=== PATIENT | male | born 1970 | race Caucasian/White ===

== ENCOUNTER 2023-05-17 20:50 | Emergency (ER) | payer OTHER, SELFPAY ==
[2023-05-17 20:53] VITALS: BP 190/124; BMI 42.1
[2023-05-17 21:14] VITALS: BP 178/134
[2023-05-17 21:36] LABS: % Basophils 0.5 % (0-2); % Eosinophils 0.8 % (0-6); % Immature Granulocytes 0.2 % (0-0.5); % Lymphocytes 56.5 % (20.5-51.1); % Monocytes 6.1 % (1.7-9.3); % Neutrophils 35.9 % (42.2-75.2); Absolute Basophils 0.1 10^3/uL (0-0.2); Absolute Eosinophils 0.1 10^3/uL (0-0.7); Absolute Lymphocytes 7.4 10^3/uL (1.2-3.4); Absolute Monocytes 0.8 10^3/uL (0.1-0.6); Absolute Neutrophils 4.7 10^3/uL (1.4-6.5); Hematocrit 46.3 % (39.0-52.0); Mean Corp Hgb Conc. 34.6 g/dL (33.0-37.0); Mean Corpuscular Hgb 30.2 pg (27.0-31.0); Mean Corpuscular Volume 87.4 fL (80.0-94.0); Mean Platelet Volume 10.6 fL (7.4-10.4); Nucleated Red Blood Cells % 0.2 % (-); Platelet Count 249 10^3/uL (130-400); Red Cell Dist. Width 13.2 % (11.5-14.5)
[2023-05-17] MEDS: TRANDATE 10 MG IV (21:48)
[2023-05-17 21:50] LABS: ALT (SGPT) 39 U/L (0-50); AST (SGOT) 42 U/L (17-59); Albumin 4.5 g/dl (3.5-5.0); Alkaline Phosphatase 97 U/L (38-126); Blood Urea Nitrogen 16 mg/dl (9-20); Calcium 9.7 mg/dl (8.4-10.2); Carbon Dioxide 21 mmol/L (22-30); Chloride 105 mmol/L (98-107); Estimated Creatinine Clearance 112 ml/min; Glucose 108 mg/dl (70-99); Potassium 3.9 mmol/L (3.5-5.1); Sodium 136 mmol/L (135-145); Total Bilirubin 0.6 mg/dl (0.2-1.3); Total Protein 7.2 g/dl (6.3-8.2); eGFR > 60.00
[2023-05-17 22:00] VITALS: BP 126/88
[2023-05-17 22:01] LABS: Troponin I < 0.012 ng/ml
[2023-05-17 22:39] VITALS: BP 141/83
[2023-05-17] MEDS: TRANDATE 100 MG PO (23:06)
[2023-05-17 23:08] VITALS: BP 154/100
[2023-05-18] VITALS: BP 146/96
--- NOTE | 2023-05-18 00:51 | ED.GENMED ---
History of Present Illness
General
Chief Complaint: Blood Pressure Problem
Source: patient
Exam Limitations: none
Time Seen by Provider: 05/17/23 21:20
Travel History
Have you had any contact with someone who has COVID-19?: No
Do you have any symptoms of coronavirus? Fever > 100 degrees, chills, cough, shortness of breath, sore throat, loss of taste or smell, muscle aches, or headache?: No
History of Present Illness
History of Present Illness:
52-year-old male who presents for evaluation of his blood pressure. Patient reports that he just did not feel well since about Thursday. He took his blood pressure at home and was noted to be high on Thursday. He thought maybe he did it wrong. He
states today he again did not feel quite right check his pressure. On Thursday he had a little bit of twinge of chest pain on his left chest. Since then he has not really had much pain. He had little bit discomfort in his back. No shortness of
breath. No motor weakness. No true headache. No vision changes. The patient admits he has not had his blood pressure checked in several years. He does not have a primary care doctor. He also admits he has gained some weight over the last few
years
Past History
Past History
ED Past Medical History: None
ED Past Surgical History: None
Social History
Tobacco: Non-smoker
Personal:
Living: with family
Phy Exam
Physical Exam
Physical Exam:
CONSTITUTIONAL Patient alert and oriented to person, place and time. Well-appearing. Vital signs reviewed. Obese
HEAD atraumatic, normocephalic.
EYES eyelids normal to inspection, Pupils equally round and reactive to light, Extraocular muscles intact, Conjunctiva normal, Sclera normal.
NECK normal range of motion, Trachea midline, no jugular venous distention.
RESPIRATORY CHEST No respiratory distress noted, Chest expansion equal, Bilateral breath sounds clear.
CARDIOVASCULAR regular rate and rhythm, Heart sounds normal.
ABDOMEN abdomen nontender, Bowel sounds normal. No distention.
BACK normal inspection, no obvious deformities
UPPER EXTREMITY range of motion normal, Motor strength normal, no cyanosis, no edema.
LOWER EXTREMITY range of motion normal, Motor strength normal, no cyanosis, no edema.
NEURO Speech normal, No focal motor deficits, [place] coma scale 15, Memory normal, Cranial Nerves intact to screening exam.
SKIN skin warm, dry, and normal in color.
PSYCHIATRIC patient oriented to person place and time, Normal affect.
Course
Orders/Labs/Results
Orders:
Orders
05/17/23 21:18
EKG [Electrocardiogram (*1)] Urgent
Reason for Study: Other
Other Reason for Exam: elevated blood pressure
05/17/23 21:19
EKG- Treatment ONCE
05/17/23 21:26
Complete Blood Count/With Diff Urgent
Comprehensive Metabolic Panel Urgent
Troponin I Urgent
05/17/23 21:42
Labetalol HCl [Trandate] 10 mg IV NOW STA
05/17/23 22:33
Vital Signs- Treatment ONCE
Frequency: Once
05/17/23 22:47
CR Chest - 2 Views Urgent
Comment:
Reason For Exam: HTN, cp
05/17/23 22:51
Labetalol [Trandate] 100 mg PO NOW STA
05/18/23 00:10
Ct Chest/Abd/Pel Angio W/Wo Iv Urgent
Reason For Exam: cp. HTN, r/o dissection
Abnormal Lab Results
05/17/23
21:26
WBC 13.0 H 10^3/uL
(4.8-10.8)
MPV 10.6 H fL
(7.4-10.4)
Absolute Lymphs (auto) 7.4 H 10^3/uL
(1.2-3.4)
Absolute Monos (auto) 0.8 H 10^3/uL
(0.1-0.6)
Neutrophils % 35.9 L %
(42.2-75.2)
Lymphocytes % 56.5 H %
(20.5-51.1)
Carbon Dioxide 21 L mmol/L
(22-30)
Glucose 108 H mg/dl
(70-99)
05/17/23 21:26
05/17/23 21:26
Vital Signs
Initial and Last Documented VS:
Initial Vital Signs
Temp Pulse Resp BP Pulse Ox
98 F 90 16 190/124 96
05/17/23 20:53 05/17/23 20:53 05/17/23 20:53 05/17/23 20:53 05/17/23 20:53
Last Documented Vital Signs
Temp Pulse Resp BP Pulse Ox
98 F 83 24 153/96 93
05/17/23 20:53 05/18/23 01:15 05/18/23 01:15 05/18/23 01:14 05/18/23 00:54
MDM/Problems Addressed
MDM/Problems Addressed:
Uncontrolled hypertension, obesity
*Radiology
Radiology exam reviewed: preliminary read by ED provider (No obvious dissection) and radiology read reviewed (No dissection)
*Pulse Oximetry
Patient hypoxic: no
*EKG
Interpreted by ED Provider?: Yes
Interpretation: abnormal
Rate: normal
Rhythm: PAC's
[place]: normal axis
Ischemia: no ischemia
*Child Custody Evaluator Interpretation
Rate: normal
Interpretation: normal
Rhythm: sinus and PAC's
*Critical Care Note
Total Time (30-74mins, 75-104mins- exclusive of procedures): 40-minute
Data Reviewed
Source: patient
Prescriptions/Medications Considered But Not Given:
Considered hydralazine but labetalol worked well
Patient Management
Escalation/DeEscalation of care consider admission/obs:
Patient appears well. Blood pressure uncontrolled. Check CTA to rule out aortic pathology
Update Note
Update Note:
Blood pressure much better controlled. In light of CT, blood pressure, like chest pain will refer to outpatient cardiology follow-up. Patient will need further cardiac workup. Counseled importance of weight loss. Counseled importance of diet and
exercise
ED Attending Note
-
Portions of this chart may have been created with voice recognition software.� Occasional wrong word or��sound alike� substitutions may have occurred due to the inherent limitations of voice recognition software.
Discharge Plan
Departure
Patient Disposition: Home (Routine Discharge)
Date of Disposition: 05/18/23
Time of Disposition: 01:57
Patient with high blood pressure during this ER visit?: Yes
Discharge Problem:
Uncontrolled hypertension
Instructions: High Blood Pressure (DC), Chest Pain CBC Follow Up, BLOOD PRESSURE
Prescriptions:
New
labetalol 100 mg tablet
100 mg PO BID Qty: 60 0RF
No Action
Flexeril
PRN (Reason: as needed)
cyclobenzaprine 10 MG tablet
10 mg PO TIDPRN PRN (Reason: muscle spasm) Qty: 20 0RF
prednisone 20 MG tablet
20 mg PO BID Qty: 10 0RF
oxycodone-acetaminophen 5 MG/325 MG tablet
1 tab PO Q4HPRN PRN (Reason: pain) Qty: 20 0RF
Referrals:
UNKNOWN - PT DOES,NOT KNOW [Family Provider] -
Activity Restrictions/Additional Instructions:
Return immediately for chest pain, shortness of breath, weakness of any kind, headache, vision change or any other concerns. It is important that you have close follow-up with your blood pressure. Please be sure to get a primary care doctor for
close management.
Your blood pressure was elevated while in the Emergency Department, please have your doctor re-evaluate it in the next 48 hours as untreated hypertension may lead to serious complications.
Interventions
Interventions:
*Risk Screen - Suicide Last Done: 05/17/23 20:53
*General Assessment Last Done: 05/17/23 21:14
*Neglect/Abuse Screening Last Done: 05/17/23 20:53
ED- Fall Risk Assessment Last Done: 05/17/23 21:14
*ED COVID-19 Vaccine History Last Done: 05/17/23 20:53
ED- Cardiac Assessment Last Done: 05/17/23 21:14
ED- Neurological Assessment Last Done: 05/17/23 21:14
ED- Pulmonary Assessment Last Done: 05/17/23 21:14
[2023-05-18 01:14] VITALS: BP 153/96
[2023-05-18 02:00] VITALS: BP 128/84
== END 2023-05-18 03:00 | disposition home or self-care (01) ==
LOC: EMR 20:50
PROVIDERS: Student in an Organized Health Care Education/Training Program; EMERGENCY PHYSICIAN Emergency Medicine
DX: I10 Essential (primary) hypertension (principal); E66.9 Obesity, unspecified
CPT/HCPCS: 99291; 96374; 71046; 71275; 74174; 80053; 84484; 85025; 93005; Q9967

== ENCOUNTER → 2023-06-10 16:10 | Outpatient (REF) | payer OTHER, SELFPAY | LOC: DHCBC HW 16:10 | PROVIDERS: ATTENDING PHYSICIAN Internal Medicine Cardiovascular Disease | DX: R07.89 Other chest pain (principal); I10 Essential (primary) hypertension | CPT/HCPCS: 93306 ==

== ENCOUNTER → 2023-07-07 09:08 | Outpatient (REF) | payer OTHER, SELFPAY | LOC: RCS 09:08 | PROVIDERS: ATTENDING PHYSICIAN Internal Medicine Cardiovascular Disease | DX: R07.89 Other chest pain (principal); I10 Essential (primary) hypertension | CPT/HCPCS: 93017; 93350 ==

== ENCOUNTER → 2024-11-14 13:07 | Outpatient (REF) | payer OTHER, SELFPAY | LOC: RCS 13:07 | PROVIDERS: ATTENDING PHYSICIAN Nurse Practitioner; FAMILY PHYSICIAN Family Medicine | DX: I47.19 Other supraventricular tachycardia (principal) | CPT/HCPCS: 93225; 93226 ==

== ENCOUNTER → 2024-12-12 15:01 | Outpatient (REF) | payer OTHER, SELFPAY | LOC: HWRCS 15:01 | PROVIDERS: ATTENDING PHYSICIAN Internal Medicine Cardiovascular Disease; FAMILY PHYSICIAN Family Medicine | DX: I49.49 Other premature depolarization (principal) | CPT/HCPCS: 93306 ==